=== PATIENT | male | born 1975 | race Two or more races ===

== ENCOUNTER 2021-01-20 13:37 | Emergency (ER) | payer OTHER ==
[~2021-01-20] VITALS: Ht 170.2 cm; Wt 102.1 kg
[2021-01-20] MEDS ORDERED: HYZAAR 100-12.1 EACH PO (13:47)
== END 2021-01-20 14:16 | disposition home or self-care (01) ==
LOC: ER 13:37
DX: H66.92 Otitis media, unspecified, left ear (principal); I10 Essential (primary) hypertension

== ENCOUNTER 2022-02-08 10:33 | Emergency (ER) | payer OTHER ==
[~2022-02-08] VITALS: Ht 167.6 cm; Wt 98.4 kg
[~2022-02-08 10:33] MED LIST: HYZAAR 100-12.1 EACH PO
[2022-02-08] MEDS ORDERED: ATACAND32 MG PO (10:55)
[2022-02-08] MEDS ORDERED: HYDRODIURIL12.5 MG PO (10:55)
== END 2022-02-08 16:51 | disposition home or self-care (01) ==
LOC: ER 10:33
DX: J09.X2 Influenza due to identified novel influenza A virus with other respiratory manifestations (principal); Z20.822 Contact with and (suspected) exposure to COVID-19